=== PATIENT | male | born 1945 ===

== ENCOUNTER 2016-11-24 11:01 | Day surgery (SDC) | payer MEDICARE, OTHER ==
[2016-11-23 08:28] VITALS: BMI 25.7
[2016-11-24] MEDS ORDERED: Iohexol 240 (50 ml) ONE (12:38)
[2016-11-24] MEDS ORDERED: cefTRIAXone IV 1 gm in Dextros 0 ML IVPB ONE (12:38)
[2016-11-24] MEDS ORDERED: Lidocaine 2% Jelly (Uro-Jet) ONE (12:38)
[2016-11-24] MEDS ORDERED: Iodixanol 320 MG/ML 200 ML BOTTLE IV ONE (12:40)
--- NOTE | 2016-11-24 14:01 | HP ---
See the many previously dictated notes and also the chart notes from the office. The patient underwent a cysto with a biopsy. Subsequently, the patient had what looked like an acute abdomen and subsequently went for a laparoscopic repair. See those many previously dictated notes. Interesting, the pathology came back that there is no malignancy, but more interestingly is that the pathology came back with no muscle in the specimen. I have given a copy of the reports to the patient and I have been discussing everything all along wit h the patient as well. Although there was no muscle in the specimen, there is definitely extravasation and the patient seems to have clinically gotten better with the Muro catheter in place. Perhaps also from the laparoscopic repair. Either way, the BUN and creatinine improved drastically. Now, it is down to normal. His abdominal p ain got all better. We have been following the patient very closely. We followed him through the hospital. He was admit arabella on that Wednesday night. All this is previously dictated and documented as well. I discussed with the patient and the family multiple times various issues at hand, specifically regar ding the care and just to be patient and hopefully all will heal, which is what has happened. I have explained to them I appreciate their patience with the process and appreciate their trust in t he repair process. We had discussed various options with the patient and the patient then was in the hospital. We monit ored him closely. We discussed options with the patient, with the daughter. He was subsequently discharged home in a stable fashion. General surgery was following him through. We resumed his diet. BUN and creatinine got better. Everything got better. We repeated a CAT scan. At this point, he is here for a cystogram. We are going to do a distention cystogram just to make donnelly re there is no extravasation, but at this point, it is 10 days since the initial procedure and he has been doing very well clinically. We are just doing this for confirmation. I have explained to the patient in great detail all our issues. PAST MEDICAL AND SURGICAL HISTORY: No other changes. REVIEW OF SYSTEMS: Listed above, noncontributory. SOCIAL HISTORY: Unremarkable. PHYSICAL EXAMINATION: GENERAL: Well-nourished male, no apparent distress. VITAL SIGNS: Within normal limits. HEENT: The hearing aid is noted. ABDOMEN: Overall soft, not grossly distended, remarkably better than before. The laparoscopic scars are noted. DIAGNOSES: Voiding dysfunction, hematuria with urinary extravasation that is now on the way to angelia rivera. PLAN: We are going to do a distention cystogram at this point and then further plans will follow dep ending on what we find clinically. I discussed with the patient risks, benefits from today's procedu re, which is almost minimal. I also discussed all the events that have happened in great length and great detail. We will see adriano andres becomes. ADDENDUM: Today, the patient has a Muro catheter in place. I just want to mention he has an uncirc umcised phallus. The skin is a little bit edematous. See the plans at the end, but we are also send ing him home with some Lotrisone cream to apply to the penis. Willian Christina MD cc: [id number] TT: 11/24/2016 14:00:48 en
[2016-11-24 14:09] VITALS: BP 137/86; PULSE 72; RESP 18; TEMP 98; O2SAT 100
--- NOTE | 2016-11-24 14:13 | OP ---
PROCEDURE DATE: 11/24/2016 See the many previously dictated notes and the hospital notes. A very pleasant gentleman who is here today for the above listed procedure. POSTOPERATIVE DIAGNOSES: Urinary extravasation. Perforation to bladder, acute abdomen, that is now all resolved. POSTOPERATIVE DIAGNOSES: Urinary extravasation. Perforation to bladder, acute abdomen, that is now all resolved. PROCEDURE: Cystogram, distention cystogram. COMPLICATIONS: There were none. FINDINGS: There is no extravasation of urine. The bladder empties well. No specific abnormalities are detected. Films are submitted to the radiologist to read. INDICATIONS: See the history and physical for further details. An extremely pleasant gentleman with a very pleasant family about the whole matter. He came in with microscopic hematuria. He had undergone a cystoscopy. That was on a Wednesday. Post cysto, he had abdominal pain and subsequently came into the office. Nam lamar had discussed on about going to the Emergency Room. The daughter wanted to be present and therefore, was not going to the Emergency Room. Instead, he came to the office Wednesday. When I saw him that Wednesday, it looked like an acute abdomen. In fact, we did an ultrasound in the office. He was not in retention at that time and even subsequen tly on the CT scan, he was still not in retention, interestingly enough. Instead, he had fluid within the abdominal cavity. But at the time of the office visit, he had what I thought was an acute abdomen, although a funny andrade ing coincidence, I was concerned about the possibility for bowel involvement, appendicitis, etc ., or some kind of perforation which was expected, perforation to the bowel. At the time, we brought him to the ER. I sent him right from my office to the ER. Subsequently, in the ER again, his white count was elevated between 12,000-14,000. Creatinine was elevated at 2.9. Subsequently, we got general surgery involved. We subsequently inserted a Muro catheter. General surgery brought him to the operating room for a l aparoscopic exploration. They did not find any bowel involvement. The only thing that they saw was the bladder issue which they repaired. Between their repair and the Muro catheter, the patient then subsequently healed well. Throughout the whole time, I have explained this to the patient and the daughter in josh, josh cardenas about all our care and plans and thankfully, she has been very and we discussed options for second opinion, etc., but felt at that point, we could heal him and get better. They have been very patient all along. At this point, he is coming in today for the above listed procedure, for a distention cystogram with a plan to remove the Muro catheter. In fact, his creatinine levels have all gone back down and he is basically back to normal. He is her e today for a cystogram and to remove the Muro catheter. So, the procedure is distention cystogram and removal of Muro catheter. The findings are basically are no abnormalities, no extravasation. PROCEDURE ITSELF: After obtaining informed consent and discussing options with the patient, the eunice ent is here today, placed on the table. Timeouts were called to confirm the patient. The cystogram fluid is inserted. Salmon Gillnet Vessel Operator film shows a nonspecific bowel gas pattern. The contrast is injected. We overfilled the bladder by about 300 mL. I do not want to do more than this, with a total volume of about 300 mL. There is no obvious extravasation. The patient tolerated the procedure well without complication. The drainage film was unremarkable. The patient tolerated the procedure well. The Muro catheter wa s removed. I do want to mention that his foreskin has a little bit of edema. We have given the patient a little Lotrisone cream for postop management, but I suspect now that the Muro catheter is out, it will get better. Willian Christina MD cc: [id number] TT: 11/24/2016 14:12:39 en
--- NOTE | 2016-11-24 14:30 | RAD ---
PROCEDURE: HISTORY: URINARY EXTRAVASATION COMPARISON: CT abdomen and pelvic 11/18/2016 TECHNIQUE: Cystogram performed by referring physician FINDINGS: Cystoscope inserted tip with concavity facing leftward. Muro catheter within contrast in bladder - mildly distended. Limited opacification of the bladder base. Rectal gas projects here. CT suggest enlarged prostate indenting bladder. No extravasation of contrast appreciated . Evaluation for small filling defects limited. Bladder contour grossly normal IMPRESSION: No extravasation of contrast
== END 2016-11-24 14:10 | disposition home or self-care (01) ==
LOC: C.SDS 11:01
PROVIDERS: ATTEND Urology
DX: R31.29 Other microscopic hematuria (principal)
CPT/HCPCS: 51600; 74430; Q9966